=== PATIENT | male | born 1995 | race Two or more races ===

== ENCOUNTER → 2024-10-01 | Outpatient (BNVA) | payer MEDICAID, SELFPAY | END | disposition home or self-care (01) | PROVIDERS: PCP Nurse Practitioner Primary Care; Referring Provider Nurse Practitioner Primary Care; Visit Provider Nurse Practitioner Primary Care | DX: E78.2 Mixed hyperlipidemia (principal); Z71.2 Person consulting for explanation of examination or test findings; Z71.3 Dietary counseling and surveillance | CPT/HCPCS: 99213 ==

== ENCOUNTER → 2024-12-18 | Outpatient (BNVA) | payer MEDICAID, SELFPAY | END | disposition home or self-care (01) | PROVIDERS: PCP Nurse Practitioner Family; Referring Provider Nurse Practitioner Family; Visit Provider Nurse Practitioner Family | DX: Z00.01 Encounter for general adult medical examination with abnormal findings (principal); E66.3 Overweight; Z68.25 Body mass index [BMI] 25.0-25.9, adult; Z11.3 Encounter for screening for infections with a predominantly sexual mode of transmission; Z13.220 Encounter for screening for lipoid disorders; Z01.83 Encounter for blood typing; E78.2 Mixed hyperlipidemia; E55.9 Vitamin D deficiency, unspecified; Z71.85 Encounter for immunization safety counseling | CPT/HCPCS: 99215 ==

== ENCOUNTER → 2024-12-25 | Outpatient (BNVA) | payer MEDICAID, SELFPAY | END | disposition home or self-care (01) | PROVIDERS: PCP Nurse Practitioner Family; Referring Provider Nurse Practitioner Family; Visit Provider Nurse Practitioner Family | DX: E55.9 Vitamin D deficiency, unspecified (principal); E78.2 Mixed hyperlipidemia; Z71.2 Person consulting for explanation of examination or test findings; R79.9 Abnormal finding of blood chemistry, unspecified | CPT/HCPCS: 99213 ==

== ENCOUNTER → 2025-01-27 | Outpatient (BNVA) | payer MEDICAID, SELFPAY | END | disposition home or self-care (01) | PROVIDERS: PCP Nurse Practitioner Family; Referring Provider Nurse Practitioner Family; Visit Provider Nurse Practitioner Family | DX: F43.81 Prolonged grief disorder (principal); F32.A Depression, unspecified | CPT/HCPCS: 99215 ==

== ENCOUNTER → 2025-02-06 | Outpatient (BNVA) | payer MEDICAID, SELFPAY | END | disposition home or self-care (01) | PROVIDERS: PCP Nurse Practitioner Family; Referring Provider Nurse Practitioner Family; Visit Provider Nurse Practitioner Family | DX: Z71.2 Person consulting for explanation of examination or test findings (principal); E78.2 Mixed hyperlipidemia; R94.5 Abnormal results of liver function studies | CPT/HCPCS: 99212; G0463 ==

== ENCOUNTER → 2025-04-07 | Outpatient (BNVA) | payer MEDICAID, SELFPAY | END | disposition home or self-care (01) | PROVIDERS: PCP Nurse Practitioner Family; Referring Provider Nurse Practitioner Family; Visit Provider Nurse Practitioner Family | DX: Z71.2 Person consulting for explanation of examination or test findings (principal); E78.2 Mixed hyperlipidemia; E55.9 Vitamin D deficiency, unspecified | CPT/HCPCS: 99212; G0463 ==

== ENCOUNTER → 2025-08-18 | Outpatient (BNVA) | payer MEDICAID, SELFPAY | END | disposition home or self-care (01) | PROVIDERS: PCP Nurse Practitioner Family; Referring Provider Nurse Practitioner Family; Visit Provider Nurse Practitioner Family | DX: Z71.2 Person consulting for explanation of examination or test findings (principal); E78.2 Mixed hyperlipidemia | CPT/HCPCS: 99212; G0463 ==

== ENCOUNTER → 2025-08-31 | Outpatient (BNVA) | payer MEDICAID, SELFPAY | END | disposition home or self-care (01) | PROVIDERS: PCP Nurse Practitioner Family; Referring Provider Nurse Practitioner Family; Visit Provider Nurse Practitioner Family | DX: J11.1 Influenza due to unidentified influenza virus with other respiratory manifestations (principal) | CPT/HCPCS: 87804; 87811; 99213 ==